=== PATIENT | female | born 1975 | race Caucasian/White ===

== ENCOUNTER → 2020-12-16 | Outpatient (CLI) | payer OTHER ==
[~2020-12-16] MED LIST: ASPIRIN CHEWABL81 MG PO; CIPRO HC OTIC S10 ML EARBOTH; CIPRO500 MG PO; CLOPIDOGREL75 MG PO; COLACE 100MG C100 MG PO; ESTRACE0.5 MG PO; ESTRADIOL1 EAC6 TD; ESTROVEN CMPLT M4 MG PO; IBUPROFEN600 MG PO; LIPITOR TAB 2020 MG PO; LIPITOR40 MG PO; MELOXICAM15 MG PO; MIRALAX17 GM PO; MOBIC15 MG PO; NICOTINE PATCH1 EAC2 TD; NORCO 10-325 T1 EACH PO; PLETAL 100 MG100 MG PO; PROVENTIL HFA6.7 GM INH; ROBAXIN-750750 MG PO; TESSALON PERLE100 MG PO; VISTARIL 50 MG50 MG PO; VITAMIN B-121000 MCG PO; XYZAL5 MG PO
== END ==
LOC: RAD 07:48 → HEART 5 07:48
DX: I73.9 Peripheral vascular disease, unspecified (principal); Z53.8 Procedure and treatment not carried out for other reasons

== ENCOUNTER → 2020-12-30 | Outpatient (CLI) | payer OTHER | LOC: KOH-I 12-29 14:00 | DX: I73.9 Peripheral vascular disease, unspecified (principal) | CPT/HCPCS: 93925 ==

== ENCOUNTER → 2021-02-10 | Outpatient (CLI) | payer OTHER | LOC: CT 13:30 | DX: I70.219 Atherosclerosis of native arteries of extremities with intermittent claudication, unspecified extremity (principal); Z95.828 Presence of other vascular implants and grafts | CPT/HCPCS: 75635; Q9967 ==

== ENCOUNTER → 2021-03-26 | Outpatient (CLI) | payer OTHER | LOC: EMI 10:23 | DX: M54.5 Low back pain (principal); M51.86 Other intervertebral disc disorders, lumbar region | CPT/HCPCS: 72148 ==

== ENCOUNTER → 2021-04-09 | Day surgery (SDC) | payer OTHER | END | disposition home or self-care (01) | LOC: OR 07:06 | DX: H69.83 Other specified disorders of Eustachian tube, bilateral (principal); H65.22 Chronic serous otitis media, left ear; H61.22 Impacted cerumen, left ear; J44.9 Chronic obstructive pulmonary disease, unspecified; E78.00 Pure hypercholesterolemia, unspecified; F41.0 Panic disorder [episodic paroxysmal anxiety]; F32.9 Major depressive disorder, single episode, unspecified; F17.210 Nicotine dependence, cigarettes, uncomplicated; Z79.82 Long term (current) use of aspirin; Z79.02 Long term (current) use of antithrombotics/antiplatelets; Z79.899 Other long term (current) drug therapy | CPT/HCPCS: J1100; J1885; J2001; J2405; J2704; J7120 ==

== ENCOUNTER → 2021-06-14 | Outpatient (CLI) | payer OTHER ==
[~2021-06-14] MED LIST changes: +DICLOFENAC GEL 1% TOP; +ESTROVEN MENOPAUSE PO; +HYDROCODON-ACE1 EAC4 PO; +LIPITOR80 MG PO; +PLAVIX75 MG PO; +VENTOLIN HFA 66.7 GM INH
[2021-06-14 15:28] LABS: HEMOGLOBIN 13.8 gm/dl (12.3-15.3); RED BLOOD COUNT 4.13 M/UL (4.00-5.10); WHITE BLOOD COUNT 8.9 K/UL (4.5-11.0)
[2021-06-14 15:52] LABS: BUN/CREATININE RATIO 18 (0-10)
[2021-06-15 08:13] LABS: RHEUMATOID ARTHRITIS FACTOR <10.0 IU/mL (0.0-13.9)
== END ==
LOC: LAB 12:23
PROVIDERS: Nurse Practitioner Family
DX: M79.672 Pain in left foot (principal); M79.671 Pain in right foot; M79.642 Pain in left hand; M79.641 Pain in right hand; M79.10 Myalgia, unspecified site
CPT/HCPCS: 73130; 73630; 80053; 82550; 83520; 85025; 85652; 86140; 86200; 86431

== ENCOUNTER → 2021-06-23 | Day surgery (SDC) | payer OTHER ==
[~2021-06-23] VITALS: Ht 157.5 cm; Wt 50.3 kg
[2021-06-23 06:59] LABS: BUN/CREATININE RATIO 12 (0-10)
== END | disposition home or self-care (01) ==
LOC: OR 05:53
PROVIDERS: Orthopaedic Surgery
DX: M65.312 Trigger thumb, left thumb (principal); E78.5 Hyperlipidemia, unspecified; J44.9 Chronic obstructive pulmonary disease, unspecified; F17.210 Nicotine dependence, cigarettes, uncomplicated; F40.240 Claustrophobia; Z95.820 Peripheral vascular angioplasty status with implants and grafts; Z20.822 Contact with and (suspected) exposure to COVID-19; G45.9 Transient cerebral ischemic attack, unspecified
CPT/HCPCS: 80048; 93005; J0690; J1100; J2001; J2250; J2370; J2405; J2704; J3010; J7120; U0002